=== PATIENT | female | born 1970 | race American Indian/Alaskan Native ===

== ENCOUNTER 2019-12-27 08:32 | Outpatient (CLI) | payer OTHER ==
--- NOTE | 2019-12-27 09:23 | XRay Report ---
CHEST 2 VIEWS INDICATION / CLINICAL INFORMATION: PAIN IN CHEST. COMPARISON: None available. FINDINGS: SUPPORT DEVICES: None. HEART / MEDIASTINUM: No significant abnormality. LUNGS / PLEURA: No significant pulmonary or pleural abnormality. No pneumothorax. ADDITIONAL FINDINGS: No significant additional findings. IMPRESSION: No significant abnormality Signer Name: Eric Chow MD FACR Signed: 12/27/2019 9:18 AM Workstation Name: [id number] [id number]
== END 2019-12-27 08:33 | disposition home or self-care (01) ==
LOC: XRAY 08:32
PROVIDERS: ATTEND Internal Medicine
DX: R07.9 Chest pain, unspecified (principal); M79.7 Fibromyalgia; Z90.5 Acquired absence of kidney
CPT/HCPCS: 71046